=== PATIENT | male | born 1995 | race Caucasian/White ===

== ENCOUNTER 2018-01-04 16:06 | Observation (INO) ==
[2018-01-04] MEDS ORDERED: IOPAMIDOL 100 ML BOTTLE IV ONE (16:07)
[2018-01-04] MEDS ORDERED: 0.9 % SODIUM CHLORIDE 1,000 ML IV ONE (17:17)
[2018-01-04] MEDS ORDERED: ONDANSETRON 4 MG/2 ML VIAL IV ONE (17:17)
[2018-01-04 17:40] LABS: Basophils # (Auto) 0 K/mcL (0.0-0.3); Basophils % (Auto) 0.2 % (0.0-2.0); Eosinophils # (Auto) 0.2 K/mcL (0.0-0.7); Granulocytes % (Auto) 83.2 % (38.0-78.0); Lymphocytes # (Auto) 1.3 K/mcL (1.5-4.8); Lymphocytes % (Auto) 10.6 % (15.5-49.0); Mean Cell Volume 89.9 fL (80.0-100.0); Mean Corpuscular HGB Conc 34.1 g/dL (31.0-36.0); Mean Corpuscular Hemoglobin 30.6 pg (26.0-34.0); Monocytes # (Auto) 0.5 K/mcL (0.1-0.9); Platelet Count 254 K/mcL (140-440); RBC 5.27 M/mcL (4.50-5.90); Red Cell Distribution Width 11.9 % (11.5-14.5)
[2018-01-04 17:59] LABS: ALT/SGPT 13 U/l (0-40); Albumin 4.8 gm/dL (3.2-5.2); Albumin/Globulin Ratio 1.7 (1.0-2.3); Alkaline Phosphatase 82 U/L (39-117); Blood Urea Nitrogen 10 mg/dl (6-20)
--- NOTE | 2018-01-04 18:01 | Cat Scan Report ---
CLINICAL INFORMATION: Right lower quadrant pain COMPARISON: None. TECHNIQUE: Axial images were obtained through the abdomen and pelvis. Sagittally and coronally reformatted images. 80 mL contrast material injected intravenously. Oral contrast material was not administered FINDINGS: Appendix is prominent. Appendix measures 7.5 mm in cross-sectional diameter. The appendiceal wall is mildly thickened and enhancing. There appears to be minimal periappendiceal inflammatory change. Very early appendicitis is possible. No evidence for ruptured appendicitis. No appendicolith. No periappendiceal fluid or abscess. No right lower quadrant adenopathy. Lung bases are negative. No parenchymal infiltrate or mass. No pleural fluid. No pericardial fluid. Negative liver. No focal intrahepatic abnormality. Gallbladder is present. No calcified gallstones. No dilated bile ducts. Negative spleen. No splenomegaly. Normal enhancement splenic and portal veins Negative pancreas. No pancreatic mass. No peripancreatic abnormality. Negative adrenal glands. Kidneys are negative. No solid or cystic mass. No hydronephrosis. No renal or ureteral calculi. No diverticulitis. No mechanical small bowel obstruction. No retroperitoneal is enteric adenopathy. IMPRESSION: 1. Prominent appendix with minimal periappendiceal inflammatory change. Appearance is consistent with very early appendicitis. No ruptured appendix. 2. No other abnormality. The exam was performed using radiation dose optimization techniques including, but not limited to, automated exposure control, adjustment of the mA and/or kV according to patient size and use of iterative reconstruction technique. Interpreted and Authenticated by: Harley Salcido 01/04/18
--- NOTE | 2018-01-04 18:59 | Emergency Department Note ---
ED Note Addendum Note Addendum: Seen in conjunction with Nanda patient has an right lower quadrant pain with an elevated white count of 12,000 CT reveals a possible early appendicitis Dr. Oreilly has been contacted to be admitted. Agree with the diagnosis and treatment
[2018-01-04] MEDS ORDERED: ONDANSETRON 4 MG/2 ML VIAL IV PRN (19:12)
--- NOTE | 2018-01-04 19:17 | Emergency Department Note ---
General Adult HPI - General Chief complaint: Dizziness Stated complaint: Dizziness Time Seen by Provider: 01/04/18 16:21 Source: patient Mode of arrival: wheelchair Limitations: no limitations - History of Present Illness HPI Narrative: 22-year-old male presents with a 48 hour history of nausea, vomiting, and dizziness. Denies diarrhea. States he first noticed about 2 days ago when he was bending over and went to stand up and became very dizzy. [place] like the room was spinning. He began vomiting and having nausea and noticed some right lower quadrant pain in his abdomen. States more than anything the nausea is severe. He cannot keep anything down. States he tried to eat some crackers a few hours prior to arrival and vomited it immediately. He even drink vomits if he drinks water. He feels like he is dehydrated. Originally he states this was only been last 48 hours with all the symptoms. However upon learning that he needed to be admitted to the hospital he gives us further history telling us he is actually been sick off and on for 2-3 weeks he just did not want to tell us that for some reason. That reason is unclear. States he just has generally felt poor and has had intermittent nausea and vomiting last few weeks. States he would get better for a few days and then worse again. States when the nausea is better at times he notices the right lower quadrant abdominal pain much more. That pain is worse with any movement and better with rest. He does feel like his mouth is dry. No sore throat or ear pain. No cough or cold symptoms. Positive chills last 24-48 hours. Unknown fever. States he has just been laying in bed for 2 days because he feels terrible in general. No dysuria or frequency. No rash. - Related Data Home Medications Medication Instructions Recorded Confirmed No Known Home Meds [No Known Home 01/04/18 01/04/18 Meds] Allergies Allergy/AdvReac Type Severity Reaction Status Date / Time amitriptyline Allergy Unknown Verified 01/04/18 16:09 Review of Systems All systems ED: reviewed and negative except as stated. Past Medical History - Past Medical History Medical history: Reports: no medical history Surgical history ED: Reports: no surgical history - Social History smoking status: Current every day smoker Alcohol use: Reports: Occasionally Drug use: Reports: none Physical Exam Limitations: no limitations General appearance: alert, other (Appears in pain and is vomiting) Head: atraumatic, normocephalic, normal inspection Eye: Present: normal appearance. Absent: conjunctival injection ENT: normal exam, normal oropharynx, mucous membranes moist, TM's normal bilaterally, normal external ear exam Neck: Present: normal inspection, trachea midline. Absent: tenderness, lymphadenopathy Chest: Present: normal inspection, symmetric chest wall rise Respiratory: Present: normal lung sounds bilaterally. Absent: respiratory distress, wheezes, accessory muscle use Cardiovascular: Present: regular rate, normal heart sounds Abdominal: Present: soft, tenderness (Right lower quadrant tenderness with palpation), rebound (Right lower quadrant), normal bowel sounds, other (The see urine dip positive for small leukocytes). Absent: distention, guarding, mass Extremities: Present: normal inspection. Absent: pedal edema Back: Absent: CVA tenderness (R), CVA tenderness (L) Neurological: Present: alert, oriented X3 Psychiatric: Present: normal affect, normal mood Skin: Present: warm, dry, intact, normal color. Absent: rash Course Course Narrative: White count is slightly elevated at 12.2. CT exam reveals inflammation around the appendix with an early appendicitis. We did patient hydrate the patient with a liter of fluid and he was feeling better. Zofran helped his nausea greatly. He feels like his nausea and dizziness is gone after a liter of fluid and then Zofran. States now his right lower quadrant pain is much more prominent now that he is not so dizzy and nauseated. I did talk to Dr. Oreilly, the surgeon who agrees to see, admit, and care for the patient. I will place holding orders and Dr. Oreilly will see him on the floor. Vital Signs Temperature 97.5 F 01/04/18 16:07 Pulse Rate 82 01/04/18 16:07 Respiratory Rate 18 01/04/18 16:07 Blood Pressure 146/97 01/04/18 16:07 Pulse Oximetry (%) 100 01/04/18 16:07 Temperature 98.9 F 01/04/18 19:00 Pulse Rate 73 01/04/18 18:46 Respiratory Rate 18 01/04/18 16:07 Blood Pressure 151/84 01/04/18 18:46 Pulse Oximetry (%) 100 01/04/18 18:46 Medical Decision Making - Lab Data Lab results reviewed: Yes I reviewed the patient's lab results. Result diagrams: 01/04/18 16:46 01/04/18 16:46 Lab Results 01/04/18 01/04/18 01/04/18 Range/Units 16:46 16:46 16:46 WBC 12.2 H (4.5-11.0) K/mcL RBC 5.27 (4.50-5.90) M/mcL Hgb 16.2 (13.5-16.5) g/dL Hct 47.4 (41.0-55.0) % POC Hct 48.0 (41.0-55.0) % MCV 89.9 (80.0-100.0) fL MCH 30.6 (26.0-34.0) pg MCHC 34.1 (31.0-36.0) g/dL RDW 11.9 (11.5-14.5) % Plt Count 254 (140-440) K/mcL MPV 8.9 (7.4-10.4) fL Gran % 83.2 H (38.0-78.0) % Lymph % (Auto) 10.6 L (15.5-49.0) % [place] % (Auto) 4.0 (1.0-12.0) % Eos % (Auto) 2.0 (0.0-7.0) % Baso % (Auto) 0.2 (0.0-2.0) % Gran # 10.2 H (1.8-8.0) K/mcL Lymph # (Auto) 1.3 L (1.5-4.8) K/mcL [place] # (Auto) 0.5 (0.1-0.9) K/mcL Eos # (Auto) 0.2 (0.0-0.7) K/mcL Baso # (Auto) 0 (0.0-0.3) K/mcL POC Sodium 142 (133-145) mmol/L Sodium 142 (133-145) mmol/L POC Potassium 3.8 (3.3-5.1) mmol/L Potassium 3.9 (3.3-5.1) mmol/L POC Chloride 102 (96-108) mmol/L Chloride 102 (96-108) mmol/L Carbon Dioxide 26 (22-30) mmol/L POC Total CO2 28 (22-30) mmol/L Anion Gap 14.0 (8-16) POC BUN 10 (6-20) mg/dl BUN 10 (6-20) mg/dl Creatinine 0.9 (0.7-1.2) mg/dl POC Creatinine 0.9 (0.7-1.2) mg/dl GFR Calculation 121 Glucose 121 H (70-105) mg/dL POC Glucose 125 H (70-105) mg/dL Calcium 9.6 (8.6-10.4) mg/dl POC WB Ioniz Calcium 1.16 (1.16-1.32) mmol/L Total Bilirubin 0.6 (0.0-1.0) mg/dL AST 18 (0-37) U/l ALT 13 (0-40) U/l Alkaline Phosphatase 82 (39-117) U/L Total Protein 7.6 (5.9-8.4) gm/dL Albumin 4.8 (3.2-5.2) gm/dL Globulin 2.8 (2.2-3.7) gm/dL Albumin/Globulin Ratio 1.7 (1.0-2.3) - Radiology Data Radiology results reviewed: Yes I reviewed the patient's radiology results. Disposition Pt seen by [employer] [facility]/PA only: No Clinical Impression: Abdominal pain, Appendicitis, Dizziness, Vomiting Disposition: Xfer As Inpt ([facility]) Condition: Fair Referrals: Radha Oreilly MD [Physician] - Time of Disposition: 19:20
[2018-01-04] MEDS: HYDROmorphone 2 MG/ML VIAL IV PRN ×2 (19:25→21:02)
[2018-01-04] MEDS: 0.9 % SODIUM CHLORIDE 1,000 ML IV SCH (19:50)
[2018-01-04] MEDS: PIPERACILLIN SODIUM/TAZOBACTAM 3.375 GM in DEXTROSE 5% IN WATER 50 ML IV SCH (20:08)
[2018-01-04] MEDS ORDERED: ACETAMINOPHEN 1,000 MG/100 ML BOTTLE IV PRN (20:40)
[2018-01-04] MEDS ORDERED: PROMETHAZINE 25 MG/ML VIAL IV PRN (20:45)
--- NOTE | 2018-01-04 21:03 | General Surg History&Physical ---
History of Present Illness Patient information: Note initiated : 01/04/18 at 9:03 pm Service Date, if different from initiated Date: [] Patient: Luis Mccracken a 22 y/o M admitted on 01/04/18 for Dizziness. Chief Complaint: [] HPI: Mr. Mccracken is a 22 year old M admitted with right lower quadrant pain with appendicitis. The patient had onset of dizziness late Wednesday night. This was followed by right lower quadrant abdominal pain and multiple episodes of nausea and vomiting. He had nausea and vomiting multiple times on Wednesday and Wednesday morning before coming to the emergency room. While evaluated in the emergency room he was noted to have right lower quadrant tenderness with a white count of 12.[address] evidence of early appendicitis. Patient will be admitted started on antibiotics and will have appendectomy: 05 January 2018. Review of Systems - Neurological vertigo, other (Seizure disorder) - Psychiatric anxiety Past History Past medical history: Seizure disorder of unknown type; usually occurs once every 2 years and only lasted about a minute; not on any therapy Past surgical history: No surgical procedures Past family history: Mother age 48 with bipolar disorder Father age 52 with hypertension Brother with bipolar disorder Past social history: Unemployed Tobacco one half pack per day Alcohol occasional use Marijuana occasional use Denies use of other drugs Medications and Allergies Home Medications Medication Instructions Recorded Confirmed Type No Known Home Meds [No Known Home 01/04/18 01/04/18 History Meds] Allergies Allergy/AdvReac Type Severity Reaction Status Date / Time amitriptyline Allergy Unknown Verified 01/04/18 16:09 Exam Temp Pulse Resp BP Pulse Ox 98.0 F 60 12 150/81 99 01/04/18 19:43 01/04/18 19:43 01/04/18 19:43 01/04/18 19:43 01/04/18 19:43 - General physical appearance well developed, well nourished, no distress - Eyes PERRL, normal ocular movement - ENT normal pinna, normal nares, normal mucosa, no hearing loss, no congestion - Head Head exam IM: Present: atraumatic, normocephalic - Neck no masses, no bruits, trachea midline, no lymphadectomy, no venous distension - Cardiovascular Cardiovascular exam IM: Present: normal rate and rhythm - Respiratory normal expansion, normal respiratory effort, clear to percussion, clear to auscultation - Abdomen Abdomen: Present: soft, tender, bowel sounds, guarding (Tenderness with guarding in right lower quadrant and hypogastric region; few active bowel sounds ) Hernia: Present: none - Genitourinary Present: normal penis with no external lesions - Integumentary Present: no rash, no growths, no abnormal pigmentation - Neurologic Present: normal coordination, normal sensation - Musculoskeletal Present: normal gait, normal posture - Psychiatric Present: oriented to time, oriented to person, oriented to place, speech is normal, memory intact Assessment and Plan (1) Appendicitis Patient counseled for laparoscopic appendectomy and it will be done on 05 January 2018 Status: Acute Qualifiers: Appendicitis type: acute appendicitis Acute appendicitis type: unspecified acute appendicitis type Qualified Code(s): K35.80 - Unspecified acute appendicitis (2) History of seizure disorder Not on any therapy Status: Acute
[2018-01-04] MEDS: ACETAMINOPHEN 1,000 MG/100 ML BOTTLE IV SCH (23:56)
[2018-01-05] MEDS: KETOROLAC 15 MG/ML VIAL IV SCH ×5 (00:28→23:07)
[2018-01-05] MEDS: PIPERACILLIN SODIUM/TAZOBACTAM 3.375 GM in DEXTROSE 5% IN WATER 50 ML IV SCH ×4 (00:29→17:51)
[2018-01-05] MEDS: 0.9 % SODIUM CHLORIDE 1,000 ML IV SCH ×4 (04:22→16:16)
[2018-01-05] MEDS: ACETAMINOPHEN 1,000 MG/100 ML BOTTLE IV SCH ×4 (05:43→23:07)
[2018-01-05 06:17] LABS: Mean Corpuscular HGB Conc 34.5 g/dL (31.0-36.0); Platelet Count 227 K/mcL (140-440); Red Cell Distribution Width 11.8 % (11.5-14.5)
[2018-01-05] MEDS: PANTOPRAZOLE 40 MG VIAL IV SCH ×2 (06:40→16:31)
[2018-01-05] MEDS ORDERED: PROMETHAZINE 25 MG/ML VIAL IV PRN ×2 (07:26→15:07)
[2018-01-05 07:46] LABS: Appearance,Urine CLEAR; Bacteria,Urine 0 /hpf (0); Bilirubin,Urine NEG (NEG); Color,Urine YELLOW; Glucose,Urine (UA) NEGATIVE (NEG); Leukocyte Esterase,Urine NEG /uL (NEG); Mucus,Urine FEW /hpf (0); Protein,Urine 100 mg/dL (NEG); Urine Blood NEG mg/dL (<0.03); Urine RBC 2 /hpf (0-1); Urine Squamous Epithelial Cell 0 /hpf (0-4); Urine WBC 5 /hpf (0-4); Urobilinogen,Urine NEG (NEG)
[2018-01-05 07:49] LABS: ALT/SGPT 10 U/l (0-40); Albumin/Globulin Ratio 1.7 (1.0-2.3); Alkaline Phosphatase 69 U/L (39-117); Bilirubin,Direct < 0.2 mg/dL (0.0-0.3); Blood Urea Nitrogen 9 mg/dl (6-20); Gamma Glutamyl Transpeptidase 16 U/L (8-61); Uric Acid 3.8 mg/dL (2.5-8.0)
[2018-01-05 08:05] LABS: Eosinophils % (Manual) 1 % (0-7); Lymphocytes % 32 % (15-49); Monocytes % (Manual) 2 % (1-12); Platelet Estimate NORMAL (NORMAL); RBC Morphology NORMAL (NORMAL); Segmented Neutrophils % 65 % (38-78)
[2018-01-05] MEDS: HYDROmorphone 2 MG/ML VIAL IV PRN ×2 (10:41→18:20)
[2018-01-05] MEDS ORDERED: fentaNYL 250 MCG/5 ML VIAL IV ONE (14:35)
[2018-01-05] MEDS ORDERED: ROCURONIUM 10 MG/ML ML IV ONE (14:35)
[2018-01-05] MEDS ORDERED: LIDOCAINE HCL/PF 100 MG/5 ML SYRINGE IV ONE (14:35)
[2018-01-05] MEDS ORDERED: NEOSTIGMINE 1 MG/ML VIAL IV ONE (14:35)
[2018-01-05] MEDS ORDERED: MIDAZOLAM 5 MG/5 ML VIAL IV ONE (14:35)
[2018-01-05] MEDS ORDERED: ONDANSETRON 4 MG/2 ML VIAL IV ONE (14:35)
[2018-01-05] MEDS ORDERED: GLYCOPYRROLATE 0.2 MG/ML VIAL IV ONE (14:35)
[2018-01-05] MEDS ORDERED: ESMOLOL 100 MG/10 ML VIAL IV ONE (14:35)
[2018-01-05] MEDS ORDERED: PROPOFOL 200 MG/20 ML VIAL IV ONE (14:35)
[2018-01-05] MEDS ORDERED: DEXAMETHASONE 10 MG/ML VIAL IV ONE (14:35)
[2018-01-05] MEDS ORDERED: KETOROLAC 30 MG/ML VIAL IV ONE (14:35)
[2018-01-05] MEDS ORDERED: ONDANSETRON 4 MG/2 ML VIAL IV PRN (15:07)
[2018-01-05] MEDS ORDERED: IPRATROPIUM/ALBUTEROL 3 ML AMPUL.NEB NEB PRN (15:07)
[2018-01-05] MEDS ORDERED: MEPERIDINE 25 MG/ML SYRINGE IV PRN (15:07)
[2018-01-05] MEDS ORDERED: HYDROmorphone 2 MG/ML VIAL IV PRN (15:07)
--- NOTE | 2018-01-05 15:14 | Brief Operative Note ---
Date of procedure: 01/05/18 Pre-op diagnosis: acute appendicitis Post-op diagnosis: other (acute appendicitis) Procedure: laparoscopic appendectomy Grafts/Implants: No Anesthesia: GETA Findings: acute appendicitis Complications: none Surgeon: Radha Oreilly Estimated blood loss (cc): 5 Specimens Removed/Pathology: other (appendix) Condition: stable Disposition: PACU
[2018-01-05] MEDS ORDERED: LACTATED RINGERS 1,000 ML IV SCH (15:15)
[2018-01-05] MEDS ORDERED: PROMETHAZINE 25 MG/ML VIAL IV ONE ×2 (15:37→15:38)
[2018-01-05] MEDS: fentaNYL 100 MCG/2 ML VIAL IV PRN ×4 (15:42→15:54)
[2018-01-05] MEDS ORDERED: METOCLOPRAMIDE 10 MG/2 ML VIAL IV ONE (15:49)
[2018-01-05] MEDS ORDERED: METOCLOPRAMIDE 10 MG/2 ML VIAL ONE (15:49)
[2018-01-05] MEDS: 0.9 % SODIUM CHLORIDE 10 ML SYRINGE IV SCH (21:31)
[2018-01-06] MEDS: PIPERACILLIN SODIUM/TAZOBACTAM 3.375 GM in DEXTROSE 5% IN WATER 50 ML IV SCH ×3 (00:01→12:17)
[2018-01-06] MEDS: HYDROmorphone 2 MG/ML VIAL IV PRN ×5 (00:02→12:38)
[2018-01-06] MEDS: 0.9 % SODIUM CHLORIDE 1,000 ML IV SCH ×2 (04:00→15:25)
[2018-01-06] MEDS: KETOROLAC 15 MG/ML VIAL IV SCH ×2 (05:05→11:33)
[2018-01-06] MEDS: ACETAMINOPHEN 1,000 MG/100 ML BOTTLE IV SCH ×2 (05:09→12:18)
[2018-01-06 05:50] LABS: Mean Cell Volume 90.2 fL (80.0-100.0); Mean Corpuscular HGB Conc 34.3 g/dL (31.0-36.0); Platelet Count 234 K/mcL (140-440); RBC 4.32 M/mcL (4.50-5.90); Red Cell Distribution Width 11.7 % (11.5-14.5)
[2018-01-06] MEDS: 0.9 % SODIUM CHLORIDE 10 ML SYRINGE IV SCH ×2 (06:04→14:12)
[2018-01-06 06:23] LABS: ALT/SGPT 9 U/l (0-40); Albumin 3.7 gm/dL (3.2-5.2); Albumin/Globulin Ratio 1.9 (1.0-2.3); Alkaline Phosphatase 60 U/L (39-117); Bilirubin,Direct < 0.2 mg/dL (0.0-0.3); Blood Urea Nitrogen 6 mg/dl (6-20); Gamma Glutamyl Transpeptidase 14 U/L (8-61); Uric Acid 2.5 mg/dL (2.5-8.0)
[2018-01-06] MEDS: PANTOPRAZOLE 40 MG VIAL IV SCH (07:55)
[2018-01-06 09:07] LABS: Lymphocytes % 5 % (15-49); Monocytes % (Manual) 3 % (1-12); Platelet Estimate NORMAL (NORMAL); RBC Morphology NORMAL (NORMAL); Segmented Neutrophils % 92 % (38-78)
[2018-01-06] MEDS ORDERED: oxyCODONE/APAP 10/325MG TABLET PO PRN (12:46)
--- NOTE | 2018-01-06 14:26 | Discharge Summary ---
Providers - Providers Patient information: Note initiated : 01/06/18 at 2:24 pm Service Date, if different from initiated Date: [] Patient: Luis Mccracken 22 y/o M admitted on 01/04/18 for Dizziness/ Appendicitis. Chief Complaint: [] Date of admission: 01/04/18 Discharge date: 01/06/18 Attending physician: Radha Oreilly Hospitalization Hospital course: 22-year-old male who presents to the emergency room with a 12 hour history of severe pain in the right lower quadrant and hypogastrium. He had associated multiple episodes of nausea with vomiting. His pain increased throughout the night and he finally was seen in the emergency room. He was noted to have leukocytosis with a tender abdomen with guarding and rebound in the right lower quadrant. CT confirms dilated appendix with periappendiceal tissue edema. He was counseled for appendectomy and it was carried out uneventfully. He has had a stable postoperative course and is ready for discharge. Discharge diagnosis: Acute appendicitis Secondary discharge diagnosis: History of seizure disorder Reason for admission: Abdominal pain nausea and vomiting Procedures: Laparoscopic appendectomy Pertinent studies/significant findings: CT of abdomen and pelvis with IV contrast Complications: None Exam Temp Pulse Resp BP Pulse Ox 98.3 F 84 12 119/73 93 01/06/18 12:00 01/06/18 12:00 01/06/18 12:00 01/06/18 12:00 01/06/18 12:00 - General physical appearance well developed, well nourished, no distress - Eyes PERRL, normal ocular movement - ENT normal pinna, normal nares, normal mucosa, no hearing loss, no congestion - Head Head exam IM: Present: atraumatic, normocephalic - Neck no masses, no bruits, trachea midline, no lymphadectomy, no venous distension - Cardiovascular Cardiovascular exam IM: Present: normal rate and rhythm - Respiratory normal expansion, normal respiratory effort, clear to percussion, clear to auscultation - Abdomen Abdomen: Present: soft, tender (Mild tenderness around port sites; Active bowel sounds), bowel sounds Hernia: Present: none - Genitourinary Present: normal penis with no external lesions - Integumentary Present: no rash, no growths, no abnormal pigmentation - Neurologic Present: normal coordination, normal sensation - Musculoskeletal Present: normal gait, normal posture - Psychiatric Present: oriented to time, oriented to person, oriented to place, speech is normal, memory intact Discharge Plan - Patient/Caregiver Discharge Instructions Activity: increase activity as tolerated Diet: Full Liquid (Advance diet as tolerated) Additional Instructions: May leave dressings in place May shower Follow-up appointment in office in 2 weeks Prescriptions: oxyCODONE/APAP [Percocet 10-325Mg] 1 - 2 tab PO Q4HP PRN #30 tab PRN Reason: Pain Level 3-6 - Follow up Plan Follow up with: Radha Oreilly MD [Physician] - Disposition: Home, Self-Care Prognosis: Good Rehab Potential: Good I certify that the patient requires SNF services.: No Overall status at discharge: patient is not back to baseline Pending Studies Resuscitation Status Full Code Diet Regular Diet Start [place] Jan 06 1326 Hydromorphone HCl (Dilaudid) 1 mg IV Q2HP PRN PRN Reason: PAIN LEVEL > 6 Last Admin: 01/06/18 12:38 Dose: 1 mg Admin: 01/06/18 10:40 Dose: 1 mg Admin: 01/06/18 07:55 Dose: 1 mg Admin: 01/06/18 05:41 Dose: 1 mg Admin: 01/06/18 00:02 Dose: 1 mg Admin: 01/05/18 18:20 Dose: 1 mg Admin: 01/05/18 10:41 Dose: 1 mg Admin: 01/04/18 21:02 Dose: 1 mg Admin: 01/04/18 19:25 Dose: 1 mg Acetaminophen (Ofirmev) 1,000 mg in 100 mls @ 200 mls/hr IV Q6 [facility]IS Last Infusion: 01/06/18 12:48 Dose: 0 mls/hr Admin: 01/06/18 12:18 Dose: 200 mls/hr Infusion: 01/06/18 05:39 Dose: 0 mls/hr Admin: 01/06/18 05:09 Dose: 200 mls/hr Infusion: 01/05/18 23:37 Dose: 200 mls/hr Admin: 01/05/18 23:07 Dose: 200 mls/hr Infusion: 01/05/18 18:20 Dose: 200 mls/hr Admin: 01/05/18 17:50 Dose: 200 mls/hr Infusion: 01/05/18 12:50 Dose: 0 mls/hr Admin: 01/05/18 12:20 Dose: 200 mls/hr Infusion: 01/05/18 06:35 Dose: 0 mls/hr Admin: 01/05/18 05:43 Dose: 200 mls/hr Infusion: 01/05/18 00:28 Dose: 0 mls/hr Admin: 01/04/18 23:56 Dose: 200 mls/hr Sodium Chloride (Sodium Chloride 0.9%) 1,000 mls @ 100 mls/hr IV .Q10H [facility] Last Admin: 01/06/18 04:00 Dose: 100 mls/hr Infusion: 01/06/18 02:16 Dose: 100 mls/hr Admin: 01/05/18 16:16 Dose: 100 mls/hr Piperacillin Sod/Tazobactam (Sod 3.375 gm/ Dextrose) 50 mls @ 100 mls/hr IV Q6H [facility] Last Infusion: 01/06/18 12:47 Dose: 0 mls/hr Admin: 01/06/18 12:17 Dose: 100 mls/hr Infusion: 01/06/18 06:11 Dose: 0 mls/hr Admin: 01/06/18 05:41 Dose: 100 mls/hr Infusion: 01/06/18 00:31 Dose: 100 mls/hr Admin: 01/06/18 00:01 Dose: 100 mls/hr Infusion: 01/05/18 18:21 Dose: 100 mls/hr Admin: 01/05/18 17:51 Dose: 100 mls/hr Ketorolac Tromethamine (Toradol) 15 mg IV Q6 [facility] Stop: 01/06/18 18:01 Last Admin: 01/06/18 11:33 Dose: 15 mg Admin: 01/06/18 05:05 Dose: 15 mg Admin: 01/05/18 23:07 Dose: 15 mg Admin: 01/05/18 17:51 Dose: 15 mg Admin: 01/05/18 11:37 Dose: 15 mg Admin: 01/05/18 06:38 Dose: 15 mg Admin: 01/05/18 00:28 Dose: 15 mg Ondansetron HCl (Zofran) 4 mg IV Q4-6HP PRN PRN Reason: Nausea And Vomiting Last Admin: 01/05/18 06:47 Dose: 4 mg Oxycodone/Acetaminophen (Percocet 10-325mg) 1 - 2 tab PO Q4HP PRN PRN Reason: PAIN LEVEL 3-6 Last Admin: 01/06/18 14:05 Dose: 2 tab Pantoprazole Sodium (Protonix) 40 mg IV BIDAC [facility] Last Admin: 01/06/18 07:55 Dose: 40 mg Admin: 01/05/18 16:31 Dose: 40 mg Admin: 01/05/18 06:40 Dose: 40 mg Sodium Chloride (Saline Flush) 10 ml IV Q8 [facility] Last Admin: 01/06/18 14:12 Dose: Not Given Admin: 01/06/18 06:04 Dose: Not Given Admin: 01/05/18 21:31 Dose: Not Given Shift Summary 01/05/18 17:31 Shift Summary by uSjata Julian Patient back from surgery at 1607. Lap sites x3 to abdomen with claire and tegaderm. BP 140's/70's, RA. tolerating CL diet. IV to R wrist with NS @ 100. was medicated with 100 mcg fentanyl, zofran, 12.5 phenergan and 10 mg reglan in PACU. Has scheduled toradol and ofirmev. Will update at bedside. Initialized on 01/05/18 17:31 - END OF NOTE
--- NOTE | 2018-01-07 08:56 | Surgical Pathology Report ---
HISTOLOGY SPECIMEN MICROSCOPIC DIAGNOSIS APPENDIX, APPENDECTOMY: -- NO DIAGNOSTIC ALTERATIONS; SEE COMMENT. -- NO APPENDICITIS IDENTIFIED. (DMT:kunal) COMMENT: The specimen is submitted in its entirety and shows an unremarkable appendix. Findings of acute appendicitis (luminal neutrophilic inflammation, acute cryptitis and mural neutrophilic inflammation) are not identified. Additional causes for the patient's clinical symptoms should be considered. Clinical correlation is necessary. PROCEDURAL IMPRESSION Acute appendicitis. GROSS DESCRIPTION Received in formalin labeled with the patient information, is a haddad-you appendix 6.1 cm in length and up to 0.8 cm in diameter. It has 1.9 cm of pink-you attached fat. The external surface is you-pink, smooth and glistening. No surface exudate or perforations are seen. The margin is stapled and is inked black. Cut surfaces show minimal brown fecal material within the lumen. No purulent material or fecaliths are identified. Entirely submitted in three cassette. (SCB:jing) Electronically Signed by: Selvin Hernandez M.D.
--- NOTE | 2018-01-25 15:51 | Operative Note ---
DATE OF OPERATION: 01/05/2018 PREOPERATIVE DIAGNOSIS: Acute appendicitis. POSTOPERATIVE DIAGNOSIS: Acute appendicitis. PROCEDURE: Laparoscopic appendectomy. SURGEON: Radha Oreilly M.D. DESCRIPTION: Under general anesthesia, the patient's abdomen was prepped and draped in the sterile field. Supraumbilical incision was made. Veress needle was inserted uneventfully. Abdomen was insufflated with 2 liters of CO2. A 12 mm port was placed. Laparoscope was placed. The patient was placed in deep Trendelenburg position and rotated to the left. Under videoscopic guidance a 5 mm port was placed in the suprapubic midline and a 12 mm port in the left lower quadrant. The appendix was identified at the base of the cecum. It was grasped with a self-retaining grasper. A window was made in the mesoappendix at the base. The base was transected using an Endo KAI stapler. The mesoappendix was transected using an Endo KAI stapler. The appendix was placed in an Endopouch and retrieved. Irrigation was carried out until the irrigating fluid returned clear. There was no abscess formation. The CO2 was allowed to escape from the abdomen, and the ports were removed. Fascia at the umbilicus was closed with interrupted 0 Vicryl. Skin incisions were closed with claire. The patient tolerated the procedure well. He was awakened, transferred to a bed, and taken to the postanesthetic care unit in stable, satisfactory condition. LCS:ade Job ID: [id number] Doc ID: [id number] Radha Oreilly M.D.
== END 2018-01-06 14:53 | disposition home or self-care (01) ==
LOC: MEDSUR 16:06 → ED 16:06 → MEDSUR 18:30
PROVIDERS: ADMIT Family Medicine Adult Medicine; ATTEND Family Medicine Adult Medicine
PROC: LAPAPPY (ICD-10-PCS; 2018-01-05 14:33)